=== PATIENT | female | born 1980 | race Caucasian/White ===

== ENCOUNTER → 2017-07-11 | Outpatient (CLI) | payer OTHER ==
[2014-04-30 10:48] VITALS: BP 148/83
[~2017-07-11] MED LIST: GABA-586 PO; MORP15TA PO
--- NOTE | 2017-07-11 14:59 | RAD ---
Indication: Enlarged thyroid. Dysphagia. Technique: Grayscale, color Doppler ultrasound images of the thyroid obtained. Comparison: None Findings: The right thyroid lobe measures 5.0 x 1.6 x 1.4 cm and is homogeneous without discrete nodules. The isthmus measures 3 mm and is within normal limits. The left thyroid lobe measures 4.2 x 1.5 x 1.3 cm. Multiple iso to hypoechoic nodules are seen in the left thyroid lobe, the largest measuring 0.7 x 0.6 x 0.5 cm in the inferior pole. None of these nodules demonstrate suspicious features. Bilateral thyroid lobes demonstrate normal vascularity. Impression: Few scattered subcentimeter left thyroid nodules without suspicious sonographic features. Follow-up ultrasound in 6 months to one year recommended.
== END | disposition home or self-care (01) ==
LOC: US 13:30
PROVIDERS: ATTEND Family Medicine
DX: E04.0 Nontoxic diffuse goiter (principal); R13.10 Dysphagia, unspecified
CPT/HCPCS: 76536